=== PATIENT | female | born 1940 ===

== ENCOUNTER 2019-09-05 14:07 | Outpatient (RCR) | payer OTHER, SELFPAY ==
[2019-09-05 14:20] LABS: Basophils % 0.4 %; Eosinophils # 0.1 10^3/uL (0.0-0.8); Eosinophils % 1.4 %; Hematocrit 36.1 % (37.0-47.0); Hemoglobin 11.5 g/dL (11.5-15.3); Lymphocytes # 0.9 10^3/uL (0.8-4.8); Lymphocytes % 11.3 %; Mean Corpuscular HGB Conc 31.9 g/dL (30.0-36.0); Mean Corpuscular Hemoglobin 29.5 pg (28.0-34.0); Mean Corpuscular Volume 92.6 fL (81-99); Monocytes # 0.6 10^3/uL (0.2-0.9); Neutrophils # 6.3 10^3/uL (1.8-7.7); Neutrophils % 78.5 %; Nucleated Red Blood Cells % 0 %; Platelet Count 303 10^3/cmm (130-400); Red Cell Distribution Width 13.8 % (12.1-15.1)
== END 2019-09-21 23:59 | disposition home or self-care (01) ==
LOC: LAB 14:07
PROVIDERS: Family Provider Family Medicine; Visit Provider Family Medicine
DX: D62 Acute posthemorrhagic anemia (principal)
CPT/HCPCS: 85025

== ENCOUNTER → 2019-10-19 11:30 | Outpatient (BNVA) | payer OTHER, SELFPAY | PROVIDERS: Family Provider Family Medicine; Referring Provider Nurse Practitioner Family; Visit Provider Obstetrics & Gynecology Female Pelvic Medicine and Reconstructive Surgery | DX: R39.81 Functional urinary incontinence; I63.9 Cerebral infarction, unspecified | CPT/HCPCS: 87077; 87086; 87186 ==